=== PATIENT | male | born 1930 | race Caucasian/White ===

== ENCOUNTER 2016-12-16 08:43 | Emergency (ER) | payer OTHER ==
[~2016-12-16] VITALS: Ht 170.2 cm; Wt 93.0 kg
[~2016-12-16 08:43] MED LIST: ALLO100T PO; ATOR40TA PO; GEMF600T PO; HYDR-2768 PO; METF500 PO; PANT20 PO; TRAM50 PO
[2016-12-16 09:01] VITALS: BP 121/69; PULSE 84; RESP 16; TEMP 98.3; O2SAT 96
[2016-12-16 10:00] VITALS: BP 120/70; PULSE 80; RESP 16; O2SAT 96
[2016-12-16] MEDS ORDERED: PLAV75TA29 PO (10:25)
[2016-12-16] MEDS ORDERED: ASPI81CH37 CHEW (10:25)
[2016-12-16] MEDS ORDERED: INSULIN PEN SQ (10:25)
[2016-12-16] MEDS ORDERED: ALLO100T PO (10:25)
[2016-12-16] MEDS ORDERED: KETOROLAC TROMETHAMINE 60 MG/2 ML (IM) VIAL IM ONE (10:30)
--- NOTE | 2016-12-16 10:44 | RADHPO ---
EXAM DATE/TIME: 12/16/2016 10:29 [facility] COMPARISON: HAND LEFT COMPLETE ([id number]), May 22, 2009, 19:28. INDICATIONS : Left hand pain and swelling for 2 days; possible gout. MEDICAL HISTORY : None. SURGICAL HISTORY : None. ENCOUNTER: Initial ACUITY: 2 days PAIN SCORE: 7/10 LOCATION: Left hand. FINDINGS: Osseous structures are intact without evidence for acute bony fracture or focal bony destruction. The re is joint space narrowing and minimal osteophyte formation primarily involving the DIP joints. No s ignificant erosive changes. Soft tissue prominence is noted along the ulnar aspect of the wrist are. The distal ulna and carpal bones appear intact. The there is normal bone density for age. CONCLUSION: 1. Soft tissue prominence overlying the ulnar dorsal wrist without underlying bony changes. 2. 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 Patricio Dotson MD on December 16, 2016 at 10:37 Board Certified Radiologist. This report was verified electronically.
--- NOTE | 2016-12-16 10:51 | PD ---
HPI Chief Complaint: Pain: Acute or Chronic Time Seen by Provider: 10:05 Travel History International Travel<30 days: No Contact w/Intl Traveler<30days: No Traveled to known affect area: No History of Present Illness HPI 86-year-old male states that a couple weeks ago he went to an urgent care and was given antibiotics for his foot. He states the redness has gotten better to where now it's only is big toe. He denies any trauma. He states now he is also having swelling and pain to his left hand. Pain is worse with movement. He denies other modifying factors. He hasn't taken anything specifically for the pain yet. He is on Plavix with his heart history. He presents with his son. He took the full antibiotic course. His son helps supplement history. He denies other concurrent complaints. PFSH Past Medical History Hx Anticoagulant Therapy: Yes (PLAVIX) Arthritis: Yes Heart Rhythm Problems: Yes Cardiac Catheterization: Yes Cardiovascular Problems: Yes (OPEN HEART) High Cholesterol: Yes Coronary Artery Disease: Yes Diabetes: Yes Patient Takes Glucophage: No Diminished Hearing: No Gastrointestinal Disorders: No Gout: Yes Genitourinary: No Hypertension: Yes Musculoskeletal: No Neurologic: No Reproductive: No Respiratory: No Myocardial Infarction: Yes Influenza Vaccination: Yes Past Surgical History Abdominal Surgery: No Cardiac Surgery: Yes (CABG) Coronary Artery Bypass Graft: Yes Ear Surgery: No Endocrine Surgery: No Eye Surgery: Yes (BILAT. CATARACT REMOVAL) Genitourinary Surgery: No Gynecologic Surgery: No Neurologic Surgery: No Oral Surgery: No Thoracic Surgery: No Other Surgery: Yes Social History Alcohol Use: Yes (BEER, OCCASIONALLY) Tobacco Use: No Substance Use: No Allergies-Medications (Allergen,Severity, Reaction): Coded Allergies: No Known Allergies (Verified , 12/16/16) Reported Meds & Prescriptions Reported Meds & Active Scripts Active Reported [Insulin Pen] 30 Unit SQ DAILY Aspirin Low Dose (Aspirin) 81 Mg Chew 81 Mg CHEW DAILY Plavix (Clopidogrel Bisulfate) 75 Mg Tab 25 Mg PO HS Allopurinol 100 Mg Tab 100 Mg PO DAILY Review of Systems Except as stated in HPI: all other systems reviewed are Neg Physical Exam Narrative GENERAL: Well-nourished, well-developed patient. SKIN: Warm and dry. Small amount of redness to right hallux without warmth HEAD: Normocephalic and atraumatic. EYES: No injection or drainage. ENT: No nasal drainage noted. NECK: Supple, trachea midline. CARDIOVASCULAR: Regular rate and rhythm RESPIRATORY: No increased effort. No accessory muscle use. GASTROINTESTINAL: Abdomen soft, non-tender, nondistended. EXTREMITIES: Swelling noted to left hand with diffuse tenderness without specific scaphoid tenderness, no overlying erythema, no pain with other joints other than right hallux, neurovascularly intact, no lacerations over, compartments soft. NEUROLOGICAL: Awake. Motor and sensory grossly within normal limits. Normal speech. Data Data Last Documented VS Vital Signs Date Time Temp Pulse Resp B/P Pulse Ox O2 Delivery O2 Flow Rate FiO2 12/16/16 10:00 80 16 120/70 96 Room Air 12/16/16 09:01 98.3 Orders Hand, Complete ([id number]) (12/16/16 ) Ketorolac Inj (Toradol Inj) (12/16/16 10:30) [facility] Medical Decision Making Medical Screen Exam Complete: Yes Emergency Medical Condition: Yes Medical Record Reviewed: Yes (past history confirmed) Interpretation(s) Last 24 hours Impressions Hand X-Ray 12/16/16 0000 Signed Impressions: Service Date/Time: Friday, December 16, 2016 10:29 - CONCLUSION: 1. Soft tissue prominence overlying the ulnar dorsal wrist without underlying bony changes. 2. 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 Patricio Dotson MD Differential Diagnosis Osteoarthritis, gout, tendinitis, strain Narrative Course Lengthy discussion with son and patient and they agreed to left hand x-ray and if that shows no emergent findings to control pain with Tylenol as an outpatient. Given Toradol here as a one-time dose given on Plavix, all questions answered. Patient knows that follow up is incumbent on them and to return to the emergency room immediately if new or worsening symptoms develop. Patient given strict return precautions, vitals reviewed and are normal, agrees to further workup as an outpatient. Diagnosis Primary Impression: Swelling of left hand Additional Impressions: Left hand pain Toe pain, right Patient Instructions: General Instructions Additional Instructions: tylenol as needed for pain, follow with primary this week, return as needed Med/Other Pt SpecificInfo: No Change to Meds Disposition: 01 DISCHARGE HOME Condition: Stable Pauly Richey MD Dec 16, 2016 10:51
== END 2016-12-16 11:02 | disposition home or self-care (01) ==
LOC: PHED 08:43
DX: M79.89 Other specified soft tissue disorders (principal); M79.642 Pain in left hand; M79.674 Pain in right toe(s)
CPT/HCPCS: 73130; 96372; 99284; J1885

== ENCOUNTER 2017-03-03 08:30 | Emergency (ER) | payer OTHER ==
[~2017-03-03] VITALS: Ht 170.2 cm; Wt 95.0 kg
[~2017-03-03 08:30] MED LIST changes: +ASPI81CH37 CHEW; -ATOR40TA PO; -GEMF600T PO; -HYDR-2768 PO; +INSULIN PEN SQ; -METF500 PO; -PANT20 PO; +PLAV75TA29 PO; -TRAM50 PO
[2017-03-03] MEDS ORDERED: SODIUM CHLORIDE 0.9% FLUSH 10 ML FLUSH IVF PRN (08:45)
[2017-03-03] MEDS ORDERED: SODIUM CHLORID 0.9% 500 ML INJ 500 ML IV ONE (08:45)
[2017-03-03] MEDS ORDERED: KETOROLAC TROMETHAMINE 30 MG/ML (IVP) VIAL IV PUSH ONE (08:45)
[2017-03-03 08:48] VITALS: BP 100/67; PULSE 80; RESP 16; TEMP 98.6; O2SAT 97
[2017-03-03 08:51] VITALS: O2SAT 95
--- NOTE | 2017-03-03 08:55 | PD ---
HPI Chief Complaint: Dizziness Time Seen by Provider: 08:35 Travel History International Travel<30 days: No Contact w/Intl Traveler<30days: No Traveled to known affect area: No History of Present Illness HPI The patient is a 86-year-old male who presents to the emergency department for multiple complaints. The patient has a history of rotator cuff injury to left shoulder approximate 6 years ago. The patient was advised he would need surgery , however, is unable to have any orthopedic surgeon perform surgery secondary to his history of coronary artery disease and previous CABG. Patient has difficulty with abduction as well as internal/external rotation of the right upper extremity. He also complains of right wrist pain with swelling and tenderness. The patient has a history of gout and was just seen by an arthritis physician who advised him that he had gout, however, did not prescribe any medicines for his gout. He is on allopurinol for the prevention of gout. The patient states he awakened this morning feeling well, however, when he sat up and then stood up he became dizzy. The dizziness lasted for several minutes and then resolved with sitting down. He denied any chest pain, shortness breath, nausea, vomiting, or focal deficits. His symptoms have resolved. The patient is a diabetic and did not take his blood sugar prior to arrival. PFSH Past Medical History Hx Anticoagulant Therapy: Yes (PLAVIX) Arthritis: Yes Heart Rhythm Problems: Yes Cardiac Catheterization: Yes Cardiovascular Problems: Yes (OPEN HEART) High Cholesterol: Yes Coronary Artery Disease: Yes Diabetes: Yes Diminished Hearing: No Gastrointestinal Disorders: No Gout: Yes Genitourinary: No Hypertension: Yes Musculoskeletal: No Neurologic: No Reproductive: No Respiratory: No Myocardial Infarction: Yes Past Surgical History Abdominal Surgery: No Cardiac Surgery: Yes (CABG) Coronary Artery Bypass Graft: Yes Ear Surgery: No Endocrine Surgery: No Eye Surgery: Yes (BILAT. CATARACT REMOVAL) Genitourinary Surgery: No Gynecologic Surgery: No Neurologic Surgery: No Oral Surgery: No Thoracic Surgery: No Other Surgery: Yes Social History Alcohol Use: Yes (BEER, OCCASIONALLY) Tobacco Use: No Substance Use: No Allergies-Medications (Allergen,Severity, Reaction): Coded Allergies: No Known Allergies (Verified , 03/03/17) Reported Meds & Prescriptions Reported Meds & Active Scripts Active Reported [Insulin Pen] 30 Unit SQ DAILY Aspirin Low Dose (Aspirin) 81 Mg Chew 81 Mg CHEW DAILY Plavix (Clopidogrel Bisulfate) 75 Mg Tab 25 Mg PO HS Allopurinol 100 Mg Tab 100 Mg PO DAILY Review of Systems Except as stated in HPI: all other systems reviewed are Neg Eyes: No: Visual changes HENT: Positive: Lightheadedness, No: Headaches Cardiovascular: No: Chest Pain or Discomfort Respiratory: No: Shortness of Breath Gastrointestinal: No: Nausea, Vomiting Musculoskeletal: Positive: Limited ROM, Edema, Pain Neurologic: Positive: Dizziness, No: Focal Abnormalities, Change in Mentation, Slurred Speech, Paresthesia, Sensory Disturbance Physical Exam Narrative GENERAL: Awake, alert, pleasant 86-year-old male who appears his stated age and is in no acute respiratory distress. SKIN: Focused skin assessment warm/dry. HEAD: Atraumatic. Normocephalic. EYES: Pupils equal and round. No scleral icterus. No injection or drainage. ENT: No nasal bleeding or discharge. Mucous membranes pink and moist. NECK: Trachea midline. No JVD. CARDIOVASCULAR: Regular rate and rhythm. No murmur appreciated. Well-healed midline surgical scar. RESPIRATORY: No accessory muscle use. Clear to auscultation. Breath sounds equal bilaterally. GASTROINTESTINAL: Abdomen soft, non-tender, nondistended. MUSCULOSKELETAL: The patient has visible atrophy of the left deltoid compared to the right. The patient is unable to abduct or externally rotate the left upper extremity. He has mild tenderness of the lateral aspect of the left proximal humeral area. No visible ecchymosis or edema. Patient does have edema the left wrist compared to the right with tenderness of the radial aspect. Positive left radial pulse. Intrinsic hand muscles are intact. NEUROLOGICAL: Awake and alert. No obvious cranial nerve deficits. Motor grossly within normal limits. Normal speech. Nonfocal. Oriented 4. No dysarthria. Moves his lower extremities or right upper extremity without difficulty. Limited range of motion left upper extremity secondary to rotator cuff injury for the last 6 years. PSYCHIATRIC: Appropriate mood and affect; insight and judgment normal. Data Data Last Documented VS Vital Signs Date Time Temp Pulse Resp B/P (MAP) Pulse Ox O2 Delivery O2 Flow Rate FiO2 03/03/17 09:04 80 18 110/58 (75) 80 18 105/83 (90) 83 18 117/67 (84) 03/03/17 08:51 95 03/03/17 08:48 98.6 Orders Orders Electrocardiogram (03/03/17 08:45) Complete Blood Count With Diff (03/03/17 08:45) Comprehensive Metabolic Panel (03/03/17 08:45) Magnesium (Mg) (03/03/17 08:45) Ckmb (Isoenzyme) Profile (03/03/17 08:45) Troponin I (03/03/17 08:45) Ct Brain W/O Iv Contrast(Rout) (03/03/17 08:45) Ecg Monitoring (03/03/17 08:45) Iv Access Insert/Monitor (03/03/17 08:45) Oximetry (03/03/17 08:45) Sodium Chloride 0.9% Flush (Ns Flush) (03/03/17 08:45) Orthostatic Vital Signs (03/03/17 08:45) Sodium Chlorid 0.9% 500 Ml Inj (Ns 500 M (03/03/17 08:45) Ketorolac Inj (Toradol Inj) (03/03/17 08:45) CKMB (03/03/17 09:23) CKMB% (03/03/17 09:23) Labs Laboratory Tests Test 03/03/17 09:23 White Blood Count 14.9 TH/MM3 Red Blood Count 5.11 MIL/MM3 Hemoglobin 14.8 GM/DL Hematocrit 44.5 % Mean Corpuscular Volume 87.0 FL Mean Corpuscular Hemoglobin 28.9 PG Mean Corpuscular Hemoglobin Concent 33.2 % Red Cell Distribution Width 13.8 % Platelet Count 213 TH/MM3 Mean Platelet Volume 7.8 FL Neutrophils (%) (Auto) 72.6 % Lymphocytes (%) (Auto) 7.8 % Monocytes (%) (Auto) 4.1 % Eosinophils (%) (Auto) 12.6 % Basophils (%) (Auto) 2.9 % Neutrophils # (Auto) 10.8 TH/MM3 Lymphocytes # (Auto) 1.2 TH/MM3 Monocytes # (Auto) 0.6 TH/MM3 Eosinophils # (Auto) 1.9 TH/MM3 Basophils # (Auto) 0.4 TH/MM3 CBC Comment DIFF FINAL Differential Comment Blood Urea Nitrogen 29 MG/DL Creatinine 2.00 MG/DL Random Glucose 168 MG/DL Total Protein 8.6 GM/DL Albumin 3.9 GM/DL Calcium Level 9.5 MG/DL Magnesium Level 1.8 MG/DL Alkaline Phosphatase 93 U/L Aspartate Amino Transf (AST/SGOT) 11 U/L Alanine Aminotransferase (ALT/SGPT) 18 U/L Total Bilirubin 0.6 MG/DL Sodium Level 138 MEQ/L Potassium Level 5.0 MEQ/L Chloride Level 104 MEQ/L Carbon Dioxide Level 25.7 MEQ/L Anion Gap 8 MEQ/L Estimat Glomerular Filtration Rate 32 ML/MIN Total Creatine Kinase 111 U/L Troponin I LESS THAN 0.02 NG/ML MDM Medical Decision Making Medical Screen Exam Complete: Yes Emergency Medical Condition: Yes Medical Record Reviewed: Yes Interpretation(s) EKG reveals normal sinus rhythm with a rate of 80 with unifocal PVC. Q wave noted in lead 3 and aVF. Inverted T waves noted in lead V4, V5, V6, 1, and aVF. No significant changes compared to EKG on April 25, 2015. CT of the brain reveals no acute intracranial abnormality. Prominence of the ventricles. This could either related to more centralized forms of atrophy or could relate to normal pressure hydrocephalus. Last Impressions Head CT 03/03/17 0845 Signed Impressions: Service Date/Time: Friday, March 03, 2017 09:11 - CONCLUSION: 1. No acute intracranial abnormality. 2. Prominence of the ventricles. This could either relate to more centralized forms of atrophy or could relate to normal pressure hydrocephaly. Juan F Goodman Jr., MD Laboratory Tests Test 03/03/17 09:23 White Blood Count 14.9 TH/MM3 Red Blood Count 5.11 MIL/MM3 Hemoglobin 14.8 GM/DL Hematocrit 44.5 % Mean Corpuscular Volume 87.0 FL Mean Corpuscular Hemoglobin 28.9 PG Mean Corpuscular Hemoglobin Concent 33.2 % Red Cell Distribution Width 13.8 % Platelet Count 213 TH/MM3 Mean Platelet Volume 7.8 FL Neutrophils (%) (Auto) 72.6 % Lymphocytes (%) (Auto) 7.8 % Monocytes (%) (Auto) 4.1 % Eosinophils (%) (Auto) 12.6 % Basophils (%) (Auto) 2.9 % Neutrophils # (Auto) 10.8 TH/MM3 Lymphocytes # (Auto) 1.2 TH/MM3 Monocytes # (Auto) 0.6 TH/MM3 Eosinophils # (Auto) 1.9 TH/MM3 Basophils # (Auto) 0.4 TH/MM3 CBC Comment DIFF FINAL Differential Comment Blood Urea Nitrogen 29 MG/DL Creatinine 2.00 MG/DL Random Glucose 168 MG/DL Total Protein 8.6 GM/DL Albumin 3.9 GM/DL Calcium Level 9.5 MG/DL Magnesium Level 1.8 MG/DL Alkaline Phosphatase 93 U/L Aspartate Amino Transf (AST/SGOT) 11 U/L Alanine Aminotransferase (ALT/SGPT) 18 U/L Total Bilirubin 0.6 MG/DL Sodium Level 138 MEQ/L Potassium Level 5.0 MEQ/L Chloride Level 104 MEQ/L Carbon Dioxide Level 25.7 MEQ/L Anion Gap 8 MEQ/L Estimat Glomerular Filtration Rate 32 ML/MIN Total Creatine Kinase 111 U/L Troponin I LESS THAN 0.02 NG/ML Differential Diagnosis Differential diagnosis includes orthostatic hypotension, arrhythmia, CVA, TIA, to cranial hemorrhage, hypoglycemia, hyponatremia, rotator cuff tear, arthropathy, gout, pseudogout, septic arthritis, fracture. Narrative Course IV was established, labs are drawn and sent, and the patient was placed on cardiac telemetry monitoring and continuous pulse oximetry monitoring. EKG was ordered and interpreted. Bedside Accu-Chek was 155. CT of the brain was obtained. The patient has an old left rotator cuff injury with limited ability to abduct and externally rotate with obvious atrophy of the left deltoid. Patient denies any trauma to the left wrist, does know some swelling and was recently diagnosed with gout, however, was not treated for the gout. Orthostatic vital signs were obtained. Orthostatic vital signs were unremarkable. CT the brain reveals changes consistent with atrophy and/or normal pressure hydrocephaly. However, the patient has no incontinence, headache, or altered mental status. Creatinine is elevated at 2.0, I reviewed the EMR, he does have elevated creatinines in the past, last one was just greater than 1.8. Troponin is unremarkable. CPK is negative. Orthostatic vital signs were normal the patient symptoms have resolved. Patient is stable for outpatient follow-up. Diagnosis Primary Impression: Dizziness Additional Impressions: Arthropathy of left wrist Injury of left rotator cuff Qualified Codes: S46.002A - Unspecified injury of muscle(s) and tendon(s) of the rotator cuff of left shoulder, initial encounter Patient Instructions: General Instructions Additional Instructions: Please provide the patient a copy of his CT results and lab results at discharge. Follow-up with your primary physician. Return if symptoms worsen or progress. Med/Other Pt SpecificInfo: No Change to Meds Disposition: 01 DISCHARGE HOME Condition: Stable Jude Jhaveri MD Mar 03, 2017 08:55
[2017-03-03 09:04] VITALS: BP_SYST 105; BP_SYST 110; BP_SYST 117; BP_DIAS 58; BP_DIAS 67; BP_DIAS 83; RESP 18
[2017-03-03 09:44] LABS: AUTOMATED NEUTROPHIL # 10.8 TH/MM3 (1.8-7.7); BASOPHIL # 0.4 TH/MM3 (0-0.2); BASOPHIL % 2.9 % (0.0-2.0); EOSINOPHIL # 1.9 TH/MM3 (0-0.4); EOSINOPHIL % 12.6 % (0.0-4.0); HEMATOCRIT 44.5 % (39.0-51.0); HEMO FLAGS DIFF FINAL; LYMPH % 7.8 % (9.0-44.0); LYMPHOCYTE # 1.2 TH/MM3 (1.0-4.8); MEAN CORPUSCULAR HEMOGLOBIN 28.9 PG (27.0-34.0); MEAN CORPUSCULAR HGB CONC 33.2 % (32.0-36.0); MONO % 4.1 % (0.0-8.0); NEUT % 72.6 % (16.0-70.0); PLATELET COUNT 213 TH/MM3 (150-450); RED BLOOD COUNT 5.11 MIL/MM3 (4.50-5.90); RED CELL DISTRIBUTION WIDTH 13.8 % (11.6-17.2); WHITE BLOOD COUNT 14.9 TH/MM3 (4.0-11.0)
--- NOTE | 2017-03-03 09:45 | RADRPT ---
EXAM DATE/TIME: 03/03/2017 09:11 [facility] COMPARISON: No previous studies available for comparison. INDICATIONS : Dizziness. RADIATION DOSE: 62.61 CTDIvol (mGy) MEDICAL HISTORY : Cardiovascular disease. Hypercholesterolemia. Hypertension.Anticoagulant therapy. SURGICAL HISTORY : CABG ENCOUNTER: Initial ACUITY: 1 day PAIN SCALE: 0/10 LOCATION: cranial TECHNIQUE: Multiple contiguous axial images were obtained of the head. Using automated exposure control and adj ustment of the mA and/or kV according to patient size, radiation dose was kept as low as reasonably a chievable to obtain optimal diagnostic quality images. DICOM format image data is available electro nically for review and comparison. FINDINGS: CEREBRUM: The ventricles are prominent but symmetrical. No evidence of midline shift, mass lesion, hemorrhage or acute infarction. No extra-axial fluid collections are seen. POSTERIOR FOSSA: The cerebellum and brainstem are intact. The 4th ventricle is midline. The cerebellopontine angle i s unremarkable. EXTRACRANIAL: The visualized portion of the orbits is intact. SKULL: The calvaria is intact. No evidence of skull fracture. CONCLUSION: 1. No acute intracranial abnormality. 2. Prominence of the ventricles. This could either relate to more centralized forms of atrophy or cou ld relate to normal pressure hydrocephaly. Juan F Goodman Jr., MD on March 03, 2017 at 9:40 Board Certified Radiologist. This report was verified electronically.
[2017-03-03 10:03] LABS: CHLORIDE 104 MEQ/L (98-107); SODIUM (NA) 138 MEQ/L (136-145)
[2017-03-03 10:06] LABS: ANION GAP 8 MEQ/L (5-15); BICARBONATE 25.7 MEQ/L (21.0-32.0); BLOOD UREA NITROGEN 29 MG/DL (7-18); MAGNESIUM 1.8 MG/DL (1.5-2.5)
[2017-03-03 10:09] LABS: ALT (GPT) 18 U/L (12-78); AST (GOT) 11 U/L (15-37)
[2017-03-03 10:10] LABS: GLOMERULAR FILTRATION RATE 32 ML/MIN (>89)
[2017-03-03 10:11] LABS: TOTAL BILIRUBIN ADULT 0.6 MG/DL (0.2-1.0)
[2017-03-03 10:12] LABS: ALKALINE PHOSPHATASE 93 U/L (45-117); CREATINE KINASE 111 U/L (39-308)
[2017-03-03 10:24] LABS: CKMB 2.6 NG/ML (0.5-3.6)
[2017-03-03] MEDS ORDERED: NORC5TAB PO (10:26)
[2017-03-03] MEDS ORDERED: INDO25CA PO (10:26)
[2017-03-03 10:47] VITALS: BP 110/64
--- NOTE | 2017-03-04 17:17 | EKG ---
Date Performed: 03/03/2017 Time Performed: 08:49:45 PTAGE: 86 years EKG: Sinus rhythm WITH OCCASIONAL VENTRICULAR PREMATURE COMPLEXES INFERIOR MYOCARDIAL INFARCTION MODERATE T-WAVE ABNOR MALITY, CONSIDER LATERAL ISCHEMIA Since previous tracing, no significant change noted ABNORMAL ECG PREVIOUS TRACING : 04/25/2015 06.03.36 DOCTOR: Joelle Louise Interpretating Date/Time 03/04/2017 17:13:27
== END 2017-03-03 11:00 | disposition home or self-care (01) ==
LOC: PHED 08:30
DX: R42 Dizziness and giddiness (principal); S46.002A Unspecified injury of muscle(s) and tendon(s) of the rotator cuff of left shoulder, initial encounter; X58.XXXA Exposure to other specified factors, initial encounter; E11.9 Type 2 diabetes mellitus without complications; I10 Essential (primary) hypertension; I25.10 Atherosclerotic heart disease of native coronary artery without angina pectoris; I25.2 Old myocardial infarction; Z95.1 Presence of aortocoronary bypass graft; M19.90 Unspecified osteoarthritis, unspecified site; Z79.01 Long term (current) use of anticoagulants
CPT/HCPCS: 70450; 80053; 82550; 82552; 83735; 84484; 85025; 93005; 96361; 96374; 99285; J1885; J7040

== ENCOUNTER 2017-10-08 10:19 | Inpatient (IN) | payer OTHER, MEDICARE ==
[~2017-10-08] VITALS: Ht 170.2 cm; Wt 93.6 kg
[~2017-10-08 10:19] MED LIST changes: -ASPI81CH37 CHEW; +ASPI81CH6 CHEW; +INDO25CA PO; +NORC5TAB PO
[2017-10-08 10:24] VITALS: BP 138/74; PULSE 90; RESP 16; TEMP 98.8; O2SAT 97
[2017-10-08] MEDS ORDERED: VANCOMYCIN INJ 1,000 MG in SODIUM CHLOR 0.9% 250 ML INJ 250 ML IV ONE (11:30)
[2017-10-08] MEDS ORDERED: PIPERACIL-TAZO 3.375 GM PREMIX 50 ML IV ONE (11:30)
--- NOTE | 2017-10-08 11:43 | PD ---
HPI Chief Complaint: Skin Problem Time Seen by Provider: 11:08 Travel History International Travel<30 days: No Contact w/Intl Traveler<30days: No Traveled to known affect area: No History of Present Illness HPI 87-year-old male that presents to the ED for evaluation of infection to his right lower leg. Patient has a history of diabetes. Per patient's caregiver patient had a pimple-like lesion on . Did not think much of it as he was very small. On Thursday caregiver went to see him again and the lesion had become larger. Patient went to an urgent care where they had a drain. Patient was told to follow-up in 2 days with primary care doctor. Patient follow-up with primary care doctor and he was told to come here for further evaluation as the lesion appears to be more infected now. Per family and patient the area of pus has improved but now patient has more erythema around it. Patient has been taking doxycycline since Thursday and the erythema as well as the swelling has not improved at all. Patient has packing in place which was removed today by the primary care doctor and replaced. Patient states that his pain is 7 out of 10 on the area. Has a history of diabetes and takes insulin. He has no allergies to medication. No history of MRSA. No injuries or trauma. No fevers chills or sweats. No chest pain or shortness of breath. PFSH Past Medical History Hx Anticoagulant Therapy: Yes (PLAVIX) Arthritis: Yes Heart Rhythm Problems: Yes Cardiac Catheterization: Yes Cardiovascular Problems: Yes (OPEN HEART) High Cholesterol: Yes Chest Pain: Yes Coronary Artery Disease: Yes Diabetes: Yes Patient Takes Glucophage: No (unknown) Diminished Hearing: No Gastrointestinal Disorders: No Gout: Yes Genitourinary: No Hypertension: Yes Musculoskeletal: No Neurologic: No Reproductive: No Respiratory: No Myocardial Infarction: Yes Past Surgical History Abdominal Surgery: No Cardiac Surgery: Yes (CABG) Coronary Artery Bypass Graft: Yes Ear Surgery: No Endocrine Surgery: No Eye Surgery: Yes (BILAT. CATARACT REMOVAL) Genitourinary Surgery: No Gynecologic Surgery: No Neurologic Surgery: No Oral Surgery: No Thoracic Surgery: No Other Surgery: Yes Social History Alcohol Use: Yes (BEER, OCCASIONALLY) Tobacco Use: No Substance Use: No Allergies-Medications (Allergen,Severity, Reaction): Coded Allergies: No Known Allergies (Verified , 03/03/17) Reported Meds & Prescriptions Reported Meds & Active Scripts Active Indomethacin 25 Mg Cap 25 Mg PO TID Take with food, milk, or antacids to decrease stomach adverse effects. Bandera (Hydrocodone-Acetaminophen) 5-325 mg Tab 1 Tab PO Q6H PRN Reported [Insulin Pen] 30 Unit SQ DAILY Aspirin Low Dose (Aspirin) 81 Mg Chew 81 Mg CHEW DAILY Plavix (Clopidogrel Bisulfate) 75 Mg Tab 25 Mg PO HS Allopurinol 100 Mg Tab 100 Mg PO DAILY Review of Systems Except as stated in HPI: all other systems reviewed are Neg Physical Exam Narrative GENERAL: SKIN: Warm and dry. Patient has any of erythema on the right lower leg on the lateral aspect. Area of erythema is about 10 cm in diameter with induration in the middle but appears to have drained already. Patient has packing in place with a open area of about 1 cm. Actively draining at this time but does appear to be very erythematous and very warm to the touch around the area. No obvious lymphadenopathy noted. No other lesions noted. HEAD: Atraumatic. Normocephalic. EYES: Pupils equal and round. No scleral icterus. No injection or drainage. ENT: No nasal bleeding or discharge. Mucous membranes pink and moist. Tongue is midline. No uvula deviation NECK: Trachea midline. No JVD. CARDIOVASCULAR: Regular rate and rhythm. No murmurs, S3, S4. RESPIRATORY: No accessory muscle use. Clear to auscultation. Breath sounds equal bilaterally. GASTROINTESTINAL: Abdomen soft, non-tender, nondistended. Hepatic and splenic margins not palpable. MUSCULOSKELETAL: Extremities without clubbing, cyanosis, or edema. No obvious deformities. Full range of motion of the upper and lower extremities bilaterally. 2+ pulses bilaterally. NEUROLOGICAL: Awake and alert. No obvious cranial nerve deficits. Motor grossly within normal limits. Five out of 5 muscle strength in the arms and legs. Normal speech. PSYCHIATRIC: Appropriate mood and affect; insight and judgment normal. Data Data Last Documented VS Vital Signs Date Time Temp Pulse Resp B/P (MAP) Pulse Ox O2 Delivery O2 Flow Rate FiO2 10/08/17 10:24 98.8 90 16 138/74 (95) 97 Orders Orders Basic Metabolic Panel (Bmp) (10/08/17 11:17) Complete Blood Count With Diff (10/08/17 11:17) Blood Culture (10/08/17 11:17) Wound Culture And Gram Stain (10/08/17 11:17) Iv Access Insert/Monitor (10/08/17 11:17) Wound Care (10/08/17 11:17) Vancomycin Inj (Vancomycin Inj) (10/08/17 11:30) Piperacil-Tazo 3.375 Gm Premix (Zosyn 3. (10/08/17 11:30) C-Reactive Protein (Crp) (10/08/17 11:17) Westergren Sedimentation Rate (10/08/17 11:17) Tibia/Fibula (Ap/Lat) (10/08/17 ) Admit To Inpatient (10/08/17 ) Vital Signs (Adult) Q4H (10/08/17 13:25) Activity Oob With Assistance (10/08/17 13:25) Abrasive Mixer Helper / Telemetry .CONTINUOUS (10/08/17 13:25) Diet 1800 Ada Cons Carb (10/08/17 Lunch) Diet Heart Healthy (10/08/17 Lunch) Sodium Chloride 0.9% Flush (Ns Flush) (10/08/17 13:30) Sodium Chloride 0.9% Flush (Ns Flush) (10/08/17 21:00) Basic Metabolic Panel (Bmp) (10/09/17 06:00) Complete Blood Count With Diff (10/09/17 06:00) Pt Request For Service (10/08/17 13:25) Case Management Consult (10/08/17 13:25) Naloxone Inj (Narcan Inj) (10/08/17 13:30) Inpatient Certification (10/08/17 ) Vancomycin Consult Pharmacy (Vancomycin (10/08/17 13:45) Piperacil-Tazo 4.5 Gm Premix (Zosyn 4.5 (10/08/17 19:00) Lactobacillus Acidophilus (Lactinex) (10/08/17 18:00) Admit Order (Ed Use Only) (10/08/17 13:42) Labs Laboratory Tests Test 10/08/17 11:40 White Blood Count 9.0 TH/MM3 Red Blood Count 4.31 MIL/MM3 Hemoglobin 12.5 GM/DL Hematocrit 37.4 % Mean Corpuscular Volume 86.8 FL Mean Corpuscular Hemoglobin 29.1 PG Mean Corpuscular Hemoglobin Concent 33.5 % Red Cell Distribution Width 14.2 % Platelet Count 310 TH/MM3 Mean Platelet Volume 7.4 FL Neutrophils (%) (Auto) 63.6 % Lymphocytes (%) (Auto) 16.7 % Monocytes (%) (Auto) 5.5 % Eosinophils (%) (Auto) 13.4 % Basophils (%) (Auto) 0.8 % Neutrophils # (Auto) 5.7 TH/MM3 Lymphocytes # (Auto) 1.5 TH/MM3 Monocytes # (Auto) 0.5 TH/MM3 Eosinophils # (Auto) 1.2 TH/MM3 Basophils # (Auto) 0.1 TH/MM3 CBC Comment DIFF FINAL Differential Comment Erythrocyte Sedimentation Rate 65 mm/hr Blood Urea Nitrogen 23 MG/DL Creatinine 1.85 MG/DL Random Glucose 279 MG/DL Calcium Level 9.4 MG/DL Sodium Level 137 MEQ/L Potassium Level 4.8 MEQ/L Chloride Level 103 MEQ/L Carbon Dioxide Level 23.6 MEQ/L Anion Gap 10 MEQ/L Estimat Glomerular Filtration Rate 35 ML/MIN C-Reactive Protein 1.80 MG/DL MDM Medical Decision Making Medical Screen Exam Complete: Yes Emergency Medical Condition: Yes Medical Record Reviewed: Yes Interpretation(s) CBC & BMP Diagram 10/08/17 11:40 Calcium Level 9.4 Last Impressions Tibia/Fibula X-Ray 10/08/17 0000 Signed Impressions: Service Date/Time: October 12:29 - CONCLUSION: Nonspecific focal soft tissue swelling anterolaterally of the proximal leg. No acute bony abnormality. Nadir Chen MD esr and CRP elevated Differential Diagnosis Abscess versus cellulitis versus osteomyelitis versus failed outpatient treatment Narrative Course 87-year-old male that presents to the ED for evaluation of possible infection to his right leg. Patient was properly examined and was found to have signs and symptoms consistent with infection to the right leg. Appears the patient has failed outpatient treatment. Abscess itself appears to be draining and there does not appear to be any signs of loculations or purulence but the erythema and cellulitis surrounding the abscess appeared to have worsened even when patient take antibiotics for at least 3 days now. Labs and imaging were ordered. Patient was given IV antibiotics. Labs and imaging showed elevated ESR CRP. Pending agrees to admission. Patient was admitted to the service by Dr. Caal who agrees to admission. Diagnosis Primary Impression: Cellulitis of leg, right Additional Impressions: Diabetes mellitus Qualified Codes: E11.9 - Type 2 diabetes mellitus without complications; Z79.4 - ocean transportation intermediary (current) use of insulin Failure of outpatient treatment Admitting Information Admitting Physician Requests: Mohan Ariza Oct 08, 2017 11:43
[2017-10-08 12:14] LABS: AUTOMATED NEUTROPHIL # 5.7 TH/MM3 (1.8-7.7); BASOPHIL # 0.1 TH/MM3 (0-0.2); BASOPHIL % 0.8 % (0.0-2.0); EOSINOPHIL # 1.2 TH/MM3 (0-0.4); EOSINOPHIL % 13.4 % (0.0-4.0); HEMATOCRIT 37.4 % (39.0-51.0); HEMOGLOBIN 12.5 GM/DL (13.0-17.0); LYMPH % 16.7 % (9.0-44.0); LYMPHOCYTE # 1.5 TH/MM3 (1.0-4.8); MEAN CELL VOLUME 86.8 FL (80.0-100.0); MEAN CORPUSCULAR HEMOGLOBIN 29.1 PG (27.0-34.0); MEAN CORPUSCULAR HGB CONC 33.5 % (32.0-36.0); MEAN PLATELET VOLUME 7.4 FL (7.0-11.0); MONO % 5.5 % (0.0-8.0); MONOCYTE # 0.5 TH/MM3 (0-0.9); NEUT % 63.6 % (16.0-70.0); PLATELET COUNT 310 TH/MM3 (150-450); RED BLOOD COUNT 4.31 MIL/MM3 (4.50-5.90); RED CELL DISTRIBUTION WIDTH 14.2 % (11.6-17.2)
[2017-10-08 12:31] LABS: BICARBONATE 23.6 MEQ/L (21.0-32.0); C-REACTIVE PROTEIN 1.8 MG/DL (0.00-0.30); CALCIUM 9.4 MG/DL (8.5-10.1); CREATININE 1.85 MG/DL (0.60-1.30)
--- NOTE | 2017-10-08 12:54 | RADRPT ---
EXAM DATE/TIME: 10/08/2017 12:29 [facility] COMPARISON: No previous studies available for comparison. INDICATIONS : Right leg pain. Patient states he was bit by a bug. MEDICAL HISTORY : None. SURGICAL HISTORY : None. ENCOUNTER: Initial ACUITY: 1 week PAIN SCORE: 7/10 LOCATION: Right middle tibia FINDINGS: Focal area of soft tissue swelling seen anterolaterally of the proximal leg. The right tibia and fibu la are intact. No bone destruction demonstrated. There are vascular calcifications noted. CONCLUSION: Nonspecific focal soft tissue swelling anterolaterally of the proximal leg. No acute bony abnormality . Nadir Chen MD on October 08, 2017 at 12:51 Board Certified Radiologist. This report was verified electronically.
[2017-10-08] MEDS ORDERED: SODIUM CHLORIDE 0.9% FLUSH 10 ML FLUSH IV FLUSH PRN (13:30)
[2017-10-08] MEDS ORDERED: NALOXONE HCL 0.4 MG/ML AMP IV PUSH PRN (13:30)
[2017-10-08] MEDS ORDERED: Vancomycin Consult Pharmacy 1 EA OTHER SCH (13:45)
--- NOTE | 2017-10-08 15:09 | HHI.HP ---
HPI Service [facility] Primary Care Physician Cory Nunez MD Admission Diagnosis right leg draining abscess with cellulitis, failed outpatient treatm Diagnoses: Travel History International Travel<30 Days: No Contact w/Intl Traveler <30 Da: No Traveled to Known Affected Are: No History of Present Illness started on like a pimple then pt popped it got worse was at urgent care center wound was lysed, and cleaned was given doxycycline returned back to pcp not improving diabetic dizzy Review of Systems Except as stated in HPI: all other systems reviewed are Neg Past Family Social History Past Medical History htn dm hyperlipidemia cad cabg 6 yrs ago, and s/p stents Past Surgical History cabg stents Allergies: Coded Allergies: No Known Allergies (Verified Allergy, Unknown, 10/08/17) Family History most siblings had cancers- lung cancer sister- breast cancer his brother- lung cancer Social History used to smoke, quit many years ago no etoh no drugs lives with his son Physical Exam Vital Signs Vital Signs Date Time Temp Pulse Resp B/P (MAP) Pulse Ox O2 Delivery O2 Flow Rate FiO2 10/08/17 10:24 98.8 90 16 138/74 (95) 97 Physical Exam GENERAL: This is a well-nourished, well-developed patient, in no apparent distress. SKIN: No rashes, ecchymoses or lesions. Cool and dry. HEAD: Atraumatic. Normocephalic. No temporal or scalp tenderness. EYES: Pupils equal round and reactive. Extraocular motions intact. No scleral icterus. No injection or drainage. ENT: Nose without bleeding, purulent drainage or septal hematoma. Throat without erythema, tonsillar hypertrophy or exudate. Uvula midline. Airway patent. NECK: Trachea midline. No JVD or lymphadenopathy. Supple, nontender, no meningeal signs. CARDIOVASCULAR: Regular rate and rhythm without murmurs, gallops, or rubs. RESPIRATORY: Clear to auscultation. Breath sounds equal bilaterally. No wheezes , rales, or rhonchi. GASTROINTESTINAL: Abdomen soft, non-tender, nondistended. No hepato-splenomegaly , or palpable masses. No guarding. MUSCULOSKELETAL: Extremities without clubbing, cyanosis, or edema. No joint tenderness, effusion, or edema noted. No calf tenderness. Negative Homans sign bilaterally. NEUROLOGICAL: Awake and alert. Cranial nerves II through XII intact. Motor and sensory grossly within normal limits. Five out of 5 muscle strength in all muscle groups. Normal speech. Laboratory Laboratory Tests Test 10/08/17 11:40 White Blood Count 9.0 Red Blood Count 4.31 Hemoglobin 12.5 Hematocrit 37.4 Mean Corpuscular Volume 86.8 Mean Corpuscular Hemoglobin 29.1 Mean Corpuscular Hemoglobin Concent 33.5 Red Cell Distribution Width 14.2 Platelet Count 310 Mean Platelet Volume 7.4 Neutrophils (%) (Auto) 63.6 Lymphocytes (%) (Auto) 16.7 Monocytes (%) (Auto) 5.5 Eosinophils (%) (Auto) 13.4 Basophils (%) (Auto) 0.8 Neutrophils # (Auto) 5.7 Lymphocytes # (Auto) 1.5 Monocytes # (Auto) 0.5 Eosinophils # (Auto) 1.2 Basophils # (Auto) 0.1 CBC Comment DIFF FINAL Differential Comment Erythrocyte Sedimentation Rate 65 Blood Urea Nitrogen 23 Creatinine 1.85 Random Glucose 279 Calcium Level 9.4 Sodium Level 137 Potassium Level 4.8 Chloride Level 103 Carbon Dioxide Level 23.6 Anion Gap 10 Estimat Glomerular Filtration Rate 35 C-Reactive Protein 1.80 Date/Time Source Procedure Growth Status 10/08/17 11:45 Blood Peripheral Aerobic Blood Culture Pending Received 10/08/17 11:45 Blood Peripheral Anaerobic Blood Culture Pending Received 10/08/17 11:42 Wound Skin Gram Stain - Final Resulted 10/08/17 11:42 Wound Skin Wound Culture Pending Resulted Result Diagram: 10/08/17 1140 10/08/17 1140 Caprini VTE Risk Assessment Caprini Risk Assessment Model Point Value = 1 Point Value = 2 Point Value = 3 Point Value = 5 Age 41-60 Minor surgery BMI > 25 kg/m2 Swollen legs Varicose veins or History of unexplained or recurrent spontaneous Oral contraceptives or hormone replacement Sepsis (< 1 month) Serious lung disease, including pneumonia (< 1 month) Abnormal pulmonary function Acute myocardial infarction Congestive heart failure (< 1 month) History of inflammatory bowel disease Medical patient at bed rest Age 61-74 Arthroscopic surgery Major open surgery (> 45 min) Laparoscopic surgery (> 45 min) Malignancy Confined to bed (> 72 hours) Immobilizing plaster cast Central venous access Age >= 75 History of VTE Family history of VTE Factor V Leiden Prothrombin [id number] Lupus anticoagulant Anticardiolipin antibodies Elevated serum homocysteine Heparin-induced thrombocytopenia Other congenital or acquired thrombophilia Stroke (< 1 month) Elective arthroplasty Hip, pelvis, or leg fracture Acute spinal cord injury (< 1 month) Prophylaxis Regimen Total Risk Factor Score Risk Level Prophylaxis Regimen 0-1 Low Early ambulation 2 Moderate Order ONE of the following: *Sequential Compression Device (SCD) *Heparin 5000 units SQ BID 3-4 Higher Order ONE of the following medications: *Heparin 5000 units SQ TID *Enoxaparin/Lovenox 40 mg SQ daily (WT < 150 kg, CrCl > 30 mL/min) *Enoxaparin/Lovenox 30 mg SQ daily (WT < 150 kg, CrCl > 10-29 mL/min) *Enoxaparin/Lovenox 30 mg SQ BID (WT < 150 kg, CrCl > 30 mL/min) AND/OR *Sequential Compression Device (SCD) 5 or more Highest Order ONE of the following medications: *Heparin 5000 units SQ TID (Preferred with Epidurals) *Enoxaparin/Lovenox 40 mg SQ daily (WT < 150 kg, CrCl > 30 mL/min) *Enoxaparin/Lovenox 30 mg SQ daily (WT < 150 kg, CrCl > 10-29 mL/min) *Enoxaparin/Lovenox 30 mg SQ BID (WT < 150 kg, CrCl > 30 mL/min) AND *Sequential Compression Device (SCD) Assessment and Plan Assessment and Plan Impression: Right lower extremity rome area soft tissue infection with tunneling of the wound. Failed outpatient therapy. Diabetic. Elevated ESR. Chronic kidney disease stage III Hypertension Hyperlipidemia CADstatus post cardiac stents and bypass 6 years ago Obesity Plan: We will follow wound culture results. For now, continue vancomycin and Zosyn for creatinine clearance and levels. Wound care consult. Monitor fingersticks and cover with sliding scale coverage. Hold p.o. antidiabetic medications in case patient goes for studies. Consider ID consult once culture results are out. DVT prophylaxis with heparin. Discussed Condition With Patient, daughter at the bedside, ER PA Physician Certification Order for Inpatient Services The services are ordered in accordance with Medicare regulations or non- Medicare payer requirements, as applicable. In the case of services not specified as inpatient-only, they are appropriately provided as inpatient services in accordance with the 2-midnight benchmark. days is the estimated time the patient will need to remain in the hospital, assuming treatment plan goals are met and no additional complications. Sabina Caal MD Oct 08, 2017 15:09
[2017-10-08] MEDS ORDERED: GLUCAGON 1 MG/ML VIAL OTHER PRN (15:15)
[2017-10-08] MEDS ORDERED: DEXTROSE 50% IN WATER 50 ML VIAL(D50) IV PUSH PRN (15:15)
[2017-10-08 15:22] VITALS: BP 118/69; PULSE 79; RESP 17; O2SAT 96
[2017-10-08] MEDS ORDERED: DOXY1CAP91 PO (15:58)
[2017-10-08] MEDS ORDERED: DICL75TA PO (15:58)
[2017-10-08 16:33] VITALS: BP 132/82; PULSE 90; RESP 19; TEMP 98; O2SAT 99
[2017-10-08] MEDS: LACTOBACILLUS ACIDOPHILUS TAB PO SCH (17:35)
[2017-10-08] MEDS: PIPERACIL-TAZO 3.375 GM PREMIX 50 ML IV SCH (17:36)
[2017-10-08] MEDS: INSULIN ASPART SUPPLEMENTAL SCALE SQ SCH ×2 (17:36→20:01)
[2017-10-08] MEDS ORDERED: PIPERACIL-TAZO 4.5 GM PREMIX 100 ML IV SCH (19:00)
[2017-10-08] MEDS: CLOPIDOGREL 75 MG TAB PO SCH (19:59)
[2017-10-08] MEDS: SODIUM CHLORIDE 0.9% FLUSH 10 ML FLUSH IV FLUSH SCH (19:59)
[2017-10-08 20:00] VITALS: BP 130/65; PULSE 77; RESP 18; TEMP 97.8; O2SAT 96
[2017-10-08] MEDS: HEPARIN SODIUM - SQ 10,000 UNITS/ML VIAL SQ SCH (23:05)
[2017-10-09] VITALS (7 sets, daily range): BP systolic 102–144; BP diastolic 58–82; PULSE 64–92; RESP 17–19; TEMP 97–98; O2SAT 90–98
[2017-10-09] MEDS: PIPERACIL-TAZO 3.375 GM PREMIX 50 ML IV SCH ×4 (01:00→18:02)
[2017-10-09] MEDS: HEPARIN SODIUM - SQ 10,000 UNITS/ML VIAL SQ SCH ×3 (05:11→20:04)
[2017-10-09 05:52] LABS: AUTOMATED NEUTROPHIL # 5.2 TH/MM3 (1.8-7.7); BASOPHIL # 0.1 TH/MM3 (0-0.2); BASOPHIL % 0.8 % (0.0-2.0); EOSINOPHIL # 1.3 TH/MM3 (0-0.4); EOSINOPHIL % 14.9 % (0.0-4.0); HEMATOCRIT 36.2 % (39.0-51.0); HEMOGLOBIN 12.3 GM/DL (13.0-17.0); LYMPH % 20.6 % (9.0-44.0); LYMPHOCYTE # 1.9 TH/MM3 (1.0-4.8); MEAN CELL VOLUME 86.9 FL (80.0-100.0); MEAN CORPUSCULAR HEMOGLOBIN 29.5 PG (27.0-34.0); MEAN CORPUSCULAR HGB CONC 33.9 % (32.0-36.0); MEAN PLATELET VOLUME 7.3 FL (7.0-11.0); MONO % 6.1 % (0.0-8.0); MONOCYTE # 0.6 TH/MM3 (0-0.9); NEUT % 57.6 % (16.0-70.0); PLATELET COUNT 308 TH/MM3 (150-450); RED BLOOD COUNT 4.16 MIL/MM3 (4.50-5.90); RED CELL DISTRIBUTION WIDTH 13.7 % (11.6-17.2); WHITE BLOOD COUNT 9.1 TH/MM3 (4.0-11.0)
[2017-10-09 06:14] LABS: BICARBONATE 26.3 MEQ/L (21.0-32.0); CALCIUM 9.2 MG/DL (8.5-10.1); CREATININE 1.91 MG/DL (0.60-1.30)
[2017-10-09] MEDS: INSULIN ASPART SUPPLEMENTAL SCALE SQ SCH ×4 (08:00→20:04)
[2017-10-09] MEDS: SODIUM CHLORIDE 0.9% FLUSH 10 ML FLUSH IV FLUSH SCH ×2 (09:12→20:06)
[2017-10-09] MEDS: LACTOBACILLUS ACIDOPHILUS TAB PO SCH ×3 (09:12→18:01)
[2017-10-09] MEDS: ASPIRIN 81 MG CHEW TAB CHEW SCH (09:12)
[2017-10-09] MEDS ORDERED: ACETAMINOPHEN 500 MG CPLT PO PRN (09:30)
[2017-10-09] MEDS ORDERED: ACETAMINOPHEN/HYDROcodone 325 MG/5 MG TAB PO PRN (09:30)
[2017-10-09] MEDS: VANCOMYCIN INJ 1,100 MG in SODIUM CHLOR 0.9% 250 ML INJ 250 ML IV SCH (12:34)
--- NOTE | 2017-10-09 13:06 | PD.WCN.NOT ---
Wound Consult Description: Wound consult ordered by for wound management. Communicated with: Nadir CONWAY, Recommendation: 1. Cleanse right lower extremity incision site with normal saline pat dry. 2. Gently pack Iodoform 1/2 inch into incision site making contact with all undermining areas leave tail exposed. 3. Cover with dry dressing change dressing every day or as needed for dislodgement/exudate.Skin prep periwound prior to applying dressing. 4. Consult wound care is worsens Additional Information: Patient was seen today on 7 by greeting card writer for wound management .Patient alert and oriented x3 denies any discomfort or distress at this time.Dressing removed from right lower extremity lateral gaiter area wound cleansed with normal saline pat dry.single piece of plain packing strip removed from wound base without difficulty.wound base and cavity flushed with normal saline pat dry.Incision site measure ~1.0cm x 1.5cm x 0.6cm .Undermining noted from 12-8 O' clock with max depth being @ 6 O'clock measuring ~1.4cm wound base 100% beefy red non granular tissue moderate serosanguineous drainage noted to prior dressing.Purple/Red erythema noted ~2.5cm circumferential to incision site.Skin prep applied to periwound Iodoform 1/2 inch packing gauze ~12cm lightly pack into wound making contact with wound base and all undermining areas tail left exposed.Wound covered with dry dressing sign and dated.Patient tolerated wound care very well no complaints or questions for greeting card writer upon writers departure. [facility] Oct 09, 2017 13:05
--- NOTE | 2017-10-09 19:29 | HHI.PR ---
Subjective Remarks Follow-up for right lower extremity cellulitis. Patient is currently doing well. No fever or chills. Objective Vitals Vital Signs Date Time Temp Pulse Resp B/P (MAP) Pulse Ox O2 Delivery O2 Flow Rate FiO2 10/09/17 16:00 98.0 82 17 114/65 (81) 90 10/09/17 12:00 97.6 78 17 107/58 (74) 96 10/09/17 12:00 78 10/09/17 08:00 87 10/09/17 08:00 97.2 92 17 102/63 (76) 98 10/09/17 04:00 97.8 74 18 123/82 (96) 98 10/09/17 00:00 97.0 64 18 144/65 (91) 98 10/08/17 20:00 97.8 77 18 130/65 (86) 96 I/O 10/08/17 10/08/17 10/08/17 10/09/17 10/09/17 10/09/17 07:00 15:00 23:00 07:00 15:00 23:00 Intake Total 250 ml 100 ml 720 ml Balance 250 ml 100 ml 720 ml Intake Oral 720 ml IV Total 250 ml 100 ml # Voids 2 Result Diagram: 10/09/17 0518 10/09/17 0518 Imaging Last Impressions Tibia/Fibula X-Ray 10/08/17 0000 Signed Impressions: Service Date/Time: October 12:29 - CONCLUSION: Nonspecific focal soft tissue swelling anterolaterally of the proximal leg. No acute bony abnormality. Nadir Chen MD Objective Remarks GENERAL: Alert, NAD. SKIN: Warm and dry. HEAD: Normocephalic. EYES: No scleral icterus. No injection or drainage. NECK: Supple, trachea midline. No JVD or lymphadenopathy. CARDIOVASCULAR: Regular rate and rhythm without murmurs, gallops, or rubs. RESPIRATORY: Breath sounds equal bilaterally. No accessory muscle use. GASTROINTESTINAL: Abdomen soft, non-tender, nondistended. MUSCULOSKELETAL: No cyanosis, or edema. Right lower extremity below knee wound is covered with dressing. BACK: Nontender without obvious deformity. No CVA tenderness. Procedures Bedside I&D in the emergency department. A/P Problem List: (1) Cellulitis of leg, right ICD Code: L03.115 - Cellulitis of right lower limb Status: Acute (2) Diabetes mellitus ICD Code: E11.9 - Type 2 diabetes mellitus without complications Status: Acute Assessment and Plan Mr. Beasley is a pleasant 87-year-old male with a history of diabetes who presented to the emergency department on 10/08/2017 due to right lower cellulitis with skin tunneling. Heat to oral antibiotics in the outpatient setting. However due to worsening his symptoms he presented to the hospital. Right leg cellulitis Due to failed outpatient therapy, will continue vancomycin and Zosyn for now. Wound culture is growing staph aureus, follow culture and sensitivity. If MSSA, we can probably use Augmentin or dicloxacillin for 10-14 days. Diabetes mellitus - Currently on sliding scale insulin. If needed we will add long-acting insulin. CAD s/p CABG - no acute issues. Currently on Plavix, Aspirin. Full code. Heparin SQ. Problem Qualifiers (1) Diabetes mellitus: Qualified Codes: E11.9 - Type 2 diabetes mellitus without complications; Z79.4 - FDC (current) use of insulin Murphy Sarkar DO Oct 09, 2017 19:29
[2017-10-09] MEDS: CLOPIDOGREL 75 MG TAB PO SCH (20:04)
[2017-10-10] VITALS: BP 105/56; PULSE 68; RESP 18; TEMP 98; O2SAT 96
[2017-10-10] MEDS: PIPERACIL-TAZO 3.375 GM PREMIX 50 ML IV SCH ×3 (00:24→13:00)
[2017-10-10] MEDS: HEPARIN SODIUM - SQ 10,000 UNITS/ML VIAL SQ SCH ×2 (06:00→14:00)
[2017-10-10 08:00] VITALS: BP 112/78; PULSE 73; RESP 16; TEMP 97.6; O2SAT 94
[2017-10-10] MEDS: LACTOBACILLUS ACIDOPHILUS TAB PO SCH ×2 (09:04→13:00)
[2017-10-10] MEDS: ASPIRIN 81 MG CHEW TAB CHEW SCH (09:04)
[2017-10-10] MEDS: INSULIN ASPART SUPPLEMENTAL SCALE SQ SCH ×2 (09:05→12:52)
[2017-10-10] MEDS: SODIUM CHLORIDE 0.9% FLUSH 10 ML FLUSH IV FLUSH SCH (09:05)
[2017-10-10] MEDS ORDERED: BACT800T5 PO (10:58)
--- NOTE | 2017-10-10 11:01 | HHI.FF ---
Face to Face Verification Diagnosis: (1) Cellulitis of leg, right (2) Failure of outpatient treatment (3) Diabetes mellitus (4) CAD (coronary artery disease) of artery bypass graft Home Health Nursing Order: Medical education Signs/symptoms of disease process Wound care and dressing changes Nursing assessment with vital signs Instructions: Per wound care recommendations: 1. Cleanse right lower extremity incision site with normal saline pat dry. 2. Gently pack Iodoform 1/2 inch into incision site making contact with all undermining areas leave tail exposed. 3. Cover with dry dressing change dressing every day or as needed for dislodgement/exudate.Skin prep periwound prior to applying dressing. 4. Consult wound care is worsens I have seen patient Joni Beasley on 10/10/17. My clinical findings support the need for the requested home health care services because: Ltd mobility - disease progression Deconditioned w/ increased weakness Limited ability to care for self Need for psychosocial assistance High risk of falls Infection w/ risk of complications I certify that my clinical findings support that this patient is homebound because: Unsteady gait/balance Unsafe to leave home unassisted Need for psychosocial assistance Unable to use public transportation Murphy Sarkar DO Oct 10, 2017 11:01 am
[2017-10-10 12:00] VITALS: BP 132/62; PULSE 96; RESP 17; TEMP 97.6; O2SAT 97
[2017-10-10] MEDS: VANCOMYCIN INJ 1,100 MG in SODIUM CHLOR 0.9% 250 ML INJ 250 ML IV SCH (12:00)
--- NOTE | 2017-10-10 12:43 | HHI.DS ---
Discharge Summary Admission Date Oct 08, 2017 at 1:44 pm Discharge Date: Oct 10, 2017 Admitting Diagnosis right leg draining abscess with cellulitis, failed outpatient treatm (1) Cellulitis of leg, right ICD Code: L03.115 - Cellulitis of right lower limb Status: Acute (2) Diabetes mellitus ICD Code: E11.9 - Type 2 diabetes mellitus without complications Status: Acute Procedures Bedside I&D in the emergency department. Brief History - From Admission started on like a pimple then pt popped it got worse was at urgent care center wound was lysed, and cleaned was given doxycycline returned back to pcp not improving diabetic dizzy CBC/BMP: 10/09/17 0518 10/09/17 0518 Significant Findings Laboratory Tests Test 10/08/17 11:40 10/09/17 05:18 Red Blood Count 4.31 MIL/MM3 (4.50-5.90) 4.16 MIL/MM3 (4.50-5.90) Hemoglobin 12.5 GM/DL (13.0-17.0) 12.3 GM/DL (13.0-17.0) Hematocrit 37.4 % (39.0-51.0) 36.2 % (39.0-51.0) Eosinophils (%) (Auto) 13.4 % (0.0-4.0) 14.9 % (0.0-4.0) Eosinophils # (Auto) 1.2 TH/MM3 (0-0.4) 1.3 TH/MM3 (0-0.4) Erythrocyte Sedimentation Rate 65 mm/hr (0-20) Blood Urea Nitrogen 23 MG/DL (7-18) 24 MG/DL (7-18) Creatinine 1.85 MG/DL (0.60-1.30) 1.91 MG/DL (0.60-1.30) Random Glucose 279 MG/DL (74-106) 121 MG/DL (74-106) Estimat Glomerular Filtration Rate 35 ML/MIN (>89) 34 ML/MIN (>89) C-Reactive Protein 1.80 MG/DL (0.00-0.30) Imaging Last Impressions Tibia/Fibula X-Ray 10/08/17 0000 Signed Impressions: Service Date/Time: October 12:29 - CONCLUSION: Nonspecific focal soft tissue swelling anterolaterally of the proximal leg. No acute bony abnormality. Nadir Chen MD PE at Discharge GENERAL: Alert, NAD. SKIN: Warm and dry. HEAD: Normocephalic. EYES: No scleral icterus. No injection or drainage. NECK: Supple, trachea midline. No JVD or lymphadenopathy. CARDIOVASCULAR: Regular rate and rhythm without murmurs, gallops, or rubs. RESPIRATORY: Breath sounds equal bilaterally. No accessory muscle use. GASTROINTESTINAL: Abdomen soft, non-tender, nondistended. MUSCULOSKELETAL: No cyanosis, or edema. Right lower extremity below knee wound is covered with dressing. BACK: Nontender without obvious deformity. No CVA tenderness. Pt update on day of discharge Patient is currently doing well. Ambulating in the room. No acute concerns. No fever or chills. Hospital Course Mr. Beasley is a pleasant 87-year-old male with a history of diabetes who presented to the emergency department on 10/08/2017 due to right lower cellulitis with skin tunneling. Heat to oral antibiotics in the outpatient setting. However due to worsening his symptoms he presented to the hospital. Right leg cellulitis Due to failed outpatient therapy, we gave vancomycin and Zosyn. Patient remained afebrile. Wound culture is growing staph aureus MRSA. We will discharge patient home today with two weeks of Bactrim DS. Home health wound care and follow up with PCP. Diabetes mellitus - Currently on sliding scale insulin in the hospital. CAD s/p CABG - no acute issues. Currently on Plavix, Aspirin. Pt Condition on Discharge: Good Discharge Disposition: Disch w/ Home Health Serv Discharge Time: <= 30 minutes Discharge Instructions DIET: Follow Instructions for: Diabetic Diet Activities you can perform: Regular-No Restrictions Follow up Referrals: PCP Follow-up - 1 Week PCP Follow-up [facility]/ with christopher New Medications: Sulfamethoxazole-Trimethoprim (Bactrim DS) 800-160 Mg Tab 1 TAB PO BID for Infection, #28 TAB 0 Refills Continued Medications: Aspirin (Aspirin Low Dose) 81 Mg Chew 81 MG CHEW DAILY, TAB 0 Refills Clopidogrel (Plavix) 75 Mg Tab 25 MG PO HS for Blood Clot Prevention, #30 TAB [address] (Diclofen[address] Sodium DR) 75 Mg Tabdr 75 MG PO BID PRN for PAIN, #60 TAB 0 Refills Discontinued Medications: Doxycycline (Monohydrate) (Doxycycline) 100 Mg Cap 100 MG PO BID for 10 Days START DATE:10/05/2017 Murphy Sarkar DO Oct 10, 2017 12:43
[2017-10-11] MEDS ORDERED: PHARMACY ORDERED LAB ONE (11:45)
== END 2017-10-10 14:12 | disposition home health service (06) | DRG 603 ==
LOC: NEPE 10:19 → NEDA 13:44 → N07A 16:24
PROVIDERS: ADMIT Hospitalist; ATTEND Hospitalist
DX: L03.115 Cellulitis of right lower limb (principal); E11.22 Type 2 diabetes mellitus with diabetic chronic kidney disease; N18.3 Chronic kidney disease, stage 3 (moderate); B95.62 Methicillin resistant Staphylococcus aureus infection as the cause of diseases classified elsewhere; I12.9 Hypertensive chronic kidney disease with stage 1 through stage 4 chronic kidney disease, or unspecified chronic kidney disease; R70.0 Elevated erythrocyte sedimentation rate; M10.9 Gout, unspecified; M19.90 Unspecified osteoarthritis, unspecified site; E78.5 Hyperlipidemia, unspecified; I25.10 Atherosclerotic heart disease of native coronary artery without angina pectoris; E66.9 Obesity, unspecified; Z68.32 Body mass index [BMI] 32.0-32.9, adult; Z79.4 Long term (current) use of insulin; Z95.1 Presence of aortocoronary bypass graft; I25.2 Old myocardial infarction; Z87.891 Personal history of nicotine dependence; Z95.5 Presence of coronary angioplasty implant and graft
CPT/HCPCS: 73590; 80048; 82948; 85025; 85652; 86140; 86403; 87040; 87070; 87147; 87186; 87205; 96365; 96367; J1644; J1815; J2543; J3370; J7050